=== PATIENT | male | born 1970 | race Caucasian/White ===

== ENCOUNTER → 2019-07-12 | Outpatient (CLI) | payer OTHER ==
--- NOTE | 2019-07-13 10:34 | KCIC ---
MR of the left shoulder HISTORY: Left shoulder pain, decreased range of motion for about one year. TECHNIQUE: Routine multiplanar sequences are obtained. FINDINGS: The acromioclavicular joint is mildly degenerative. Mild undersurface hypertrophy and mass affect upon the supraspinatus. Mild rotator cuff signal and thickening compatible with tendinosis. Small partial-thickness tear involving the bursal aspect of the anterior supraspinatus tendon measures less than 1 cm diameter. This is about 80% deep. No full-thickness rotator cuff tear or retraction. No evidence of subscapularis tendon tear. No significant muscle atrophy. Trace fluid in the subdeltoid bursa. No significant glenohumeral joint effusion. No acute articular cartilage defect. Mild signal deep to the superior labrum appears to conform to the glenoid cartilage. Mild degenerative signal within the substance of the superior labrum. No acute labral tear. Biceps tendon intact. No acute fracture. No aggressive bone destruction. IMPRESSION: 1. Small but deep bursal surface tear of the supraspinatus tendon. 2. Degeneration or degenerative tear of the superior labrum 3. Acromioclavicular joint DJD with mass effect. Electronically signed by: Randy Richardson MD (07/13/2019 10:31 AM) [id number]
== END | disposition home or self-care (01) ==
LOC: KCIC MRI 16:58
DX: S43.432A Superior glenoid labrum lesion of left shoulder, initial encounter (principal); S46.012A Strain of muscle(s) and tendon(s) of the rotator cuff of left shoulder, initial encounter; M19.012 Primary osteoarthritis, left shoulder; X58.XXXA Exposure to other specified factors, initial encounter; Y93.89 Activity, other specified; Y92.89 Other specified places as the place of occurrence of the external cause; Y99.8 Other external cause status
CPT/HCPCS: 73221